=== PATIENT | male | born 1975 | race Caucasian/White ===

== ENCOUNTER 2018-05-17 01:34 | Observation (INO) | payer MEDICAID, OTHER ==
[2018-05-17] MEDS: IBUPROFEN 800 MG TAB PO (04:33)
[2018-05-17] MEDS: APIXABAN 5 MG TABLET PO (05:13)
[2018-05-17 06:31] LABS: ADD MAN DIFF? NO
[2018-05-17 06:37] LABS: WHITE BLOOD COUNT 7.9 10^3/ul (4.8-10.8)
[2018-05-17 06:37] LABS: BASOPHILS % 0.5 % (0.0-2.0); EOSINOPHILS # 0.1 10^3/ul (0.0-0.5); EOSINOPHILS % 1.4 % (0.0-7.0); HEMATOCRIT 34.7 % (42.0-52.0); HEMOGLOBIN 12.1 g/dl (14.0-18.0); LYMPHOCYTES # 2.2 10^3/ul (0.8-2.9); MEAN CORPUSCULAR HEMOGLOBIN 31.4 pg (29.0-33.0); MEAN CORPUSCULAR HGB CONC 34.9 g/dl (32.0-37.0); MEAN CORPUSCULAR VOLUME 90.1 fl (82.0-101.0); MEAN PLATELET VOLUME 10.2 fl (7.4-10.4); MONOCYTE # 1.1 10^3/ul (0.3-0.9); MONOCYTES % 13.6 % (0.0-11.0); NEUTROPHIL # 4.4 10^3/ul (1.6-7.5); NEUTROPHILS % 56.1 % (39.0-77.0); PLATELET COUNT 226 10^3/UL (140-415); RED BLOOD COUNT 3.85 10^6/ul (4.70-6.10); RED CELL DISTRIBUTION WIDTH 11.9 % (11.5-14.5)
[2018-05-17 06:52] LABS: INR 0.95; PROTIME 12.8 Sec (11.9-14.9)
[2018-05-17 06:53] LABS: PARTIAL THROMBOPLASTIN TIME 28.5 Sec (25.0-35.0)
[2018-05-17 06:56] LABS: ANION GAP 17 (8-16); BLOOD UREA NITROGEN 38 mg/dl (7-20); CALCIUM 8.5 mg/dl (8.4-10.2); CARBON DIOXIDE 23 mmol/L (21-31); CHLORIDE 101 mmol/L (97-110); CREATININE 1.08 mg/dl (0.61-1.24); GLUCOSE 113 mg/dl (70-220); POTASSIUM 3.1 mmol/L (3.5-5.1); SODIUM 138 mmol/L (135-144)
[2018-05-17] MEDS: HEPARIN 1000 UNITS/ML 10 ML INJ IV (06:59)
[2018-05-17] MEDS: HEPARIN 25000 UNITS/250 ML 250 ML IV (07:01)
[2018-05-17] MEDS ORDERED: NACL 0.9% 3 ML SYG IV (07:30)
[2018-05-17] MEDS ORDERED: ONDANSETRON 4 MG INJ IV (07:30)
[2018-05-17] MEDS ORDERED: ACETAMINOPHEN 325 MG TAB PO (07:30)
[2018-05-17] MEDS ORDERED: ALBUTEROL/IPRATROPIUM (NEB) 3 ML AMP HHN (07:30)
[2018-05-17] MEDS ORDERED: APIXABAN 5 MG TABLET PO (11:00)
[2018-05-17] MEDS: TRIMETHOPRIM/SULFAMETHOX (DS) TAB PO ×2 (13:24→21:44)
[2018-05-17 13:41] LABS: PARTIAL THROMBOPLASTIN TIME 84.3 Sec (25.0-35.0)
[2018-05-17] MEDS: HYDROCODONE/APAP (5/325) TAB PO ×2 (15:09→22:08)
[2018-05-17] MEDS: POTASSIUM CHLORIDE (SR) 20 MEQ TAB PO ×2 (15:30→21:44)
[2018-05-17 20:25] LABS: PARTIAL THROMBOPLASTIN TIME 67.1 Sec (25.0-35.0)
[2018-05-17] MEDS ORDERED: ENOXAPARIN 100 MG/ML SYG SC (21:00)
[2018-05-17] MEDS: FONDAPARINUX SODIUM SQ (21:55)
[2018-05-18] MEDS: POTASSIUM CHLORIDE (SR) 20 MEQ TAB PO (02:35)
[2018-05-18 05:08] LABS: ADD MAN DIFF? NO
[2018-05-18 05:16] LABS: WHITE BLOOD COUNT 4.7 10^3/ul (4.8-10.8)
[2018-05-18 05:16] LABS: BASOPHIL # 0.1 10^3/ul (0.0-0.1); BASOPHILS % 1.1 % (0.0-2.0); EOSINOPHILS # 0.1 10^3/ul (0.0-0.5); EOSINOPHILS % 1.9 % (0.0-7.0); HEMATOCRIT 35.4 % (42.0-52.0); LYMPHOCYTES # 1.7 10^3/ul (0.8-2.9); LYMPHOCYTES % 35.6 % (15.0-51.0); MEAN CORPUSCULAR HEMOGLOBIN 31.2 pg (29.0-33.0); MEAN CORPUSCULAR HGB CONC 33.9 g/dl (32.0-37.0); MEAN CORPUSCULAR VOLUME 91.9 fl (82.0-101.0); MEAN PLATELET VOLUME 10.3 fl (7.4-10.4); MONOCYTE # 0.5 10^3/ul (0.3-0.9); MONOCYTES % 11.4 % (0.0-11.0); NEUTROPHIL # 2.3 10^3/ul (1.6-7.5); NEUTROPHILS % 49.4 % (39.0-77.0); PLATELET COUNT 203 10^3/UL (140-415); RED BLOOD COUNT 3.85 10^6/ul (4.70-6.10); RED CELL DISTRIBUTION WIDTH 12.2 % (11.5-14.5)
[2018-05-18 05:49] LABS: ALANINE AMINOTRANSFERASE 77 IU/L (13-69); ALBUMIN 3.4 g/dl (3.3-4.9); ALBUMIN/GLOBULIN RATIO 0.94; ALKALINE PHOSPHATASE 53 IU/L (42-121); ANION GAP 14 (8-16); ASPARTATE AMINO TRANSFERASE 71 IU/L (15-46); BILIRUBIN,INDIRECT 0.8 mg/dl (0-1.1); BILIRUBIN,TOTAL 0.8 mg/dl (0.2-1.3); BLOOD UREA NITROGEN 20 mg/dl (7-20); CALCIUM 8.3 mg/dl (8.4-10.2); CARBON DIOXIDE 28 mmol/L (21-31); CHLORIDE 104 mmol/L (97-110); CREATININE 0.82 mg/dl (0.61-1.24); GLUCOSE 100 mg/dl (70-220); MAGNESIUM 2.1 mg/dl (1.7-2.5); POTASSIUM 4.1 mmol/L (3.5-5.1); SODIUM 142 mmol/L (135-144)
[2018-05-18] MEDS: TRIMETHOPRIM/SULFAMETHOX (DS) TAB PO ×2 (08:34→21:04)
[2018-05-18] MEDS: HYDROCODONE/APAP (5/325) TAB PO ×3 (08:34→21:04)
[2018-05-18] MEDS: SODIUM PHOSPHATE 20 MEQ in SOD CHLORIDE 0.9% 250 ML IVPB (13:18)
[2018-05-18] MEDS: FONDAPARINUX SODIUM SQ (13:19)
[2018-05-19] MEDS: HYDROCODONE/APAP (5/325) TAB PO ×2 (06:25→13:52)
[2018-05-19] MEDS: TRIMETHOPRIM/SULFAMETHOX (DS) TAB PO (09:12)
[2018-05-19] MEDS: FONDAPARINUX SODIUM SQ (09:13)
[2018-05-19] MEDS ORDERED: NEOMYC/POLYMYX/BACIT 30 GM OINT TOP (15:00)
[2018-05-21 10:56] LABS: PROTEIN C 62 % normal (70-180)
== END 2018-05-19 17:35 | disposition home or self-care (01) ==
LOC: E/R 01:34 → PP2 06:00
DX: I82.412 Acute embolism and thrombosis of left femoral vein (principal); Z86.711 Personal history of pulmonary embolism; Z91.14 Patient's other noncompliance with medication regimen
CPT/HCPCS: 80048; 80053; 81240; 83735; 83890; 84100; 85025; 85302; 85305; 85610; 85730; 93971; 99285-25; G0378